=== PATIENT | male | born 1980 | race African-American/Black ===

== ENCOUNTER 2021-03-29 08:01 | Emergency (ER) | payer MEDICAID ==
[~2021-03-29] VITALS: Ht 190.5 cm; Wt 123.0 kg
[2021-03-29] MEDS ORDERED: IBUPROFEN 600MG TABLET PO ONE (08:15)
[2021-03-29 08:35] LABS: BASOPHILS % 0.8 % (0.0-2.0); EOSINOPHILS % 3.6 % (0.0-5.0); HEMATOCRIT. 35.5 % (42.0-52.0); LYMPHOCYTES % 14.4 % (20.0-50.0); MEAN CORPUSCULAR HEMOGLOBIN 28.7 pg (28.0-32.0); MEAN CORPUSCULAR VOLUME 84.9 fL (80.0-94.0); MEAN PLATELET VOLUME 7.9 fl (7.4-10.4); MONOCYTES % 8.8 % (2.0-8.0); NEUTROPHILS % 72.4 % (40.0-76.0); PLATELET 310 x1000/uL (130-400); RED BLOOD CELL COUNT 4.19 mill/uL (4.7-6.1); RED CELL DISTRIBUTION WIDTH 13.8 % (11.6-14.6)
[2021-03-29 08:39] LABS: CHLORIDE 103 mEq/L (98-107)
[2021-03-29] MEDS ORDERED: FURO-152 MT (10:40)
[2021-03-29] MEDS ORDERED: IBUP-2029 MT (10:40)
[2021-03-29 10:45] VITALS: BP 165/69
== END 2021-03-29 10:50 | disposition home or self-care (01) ==
LOC: ER 08:10
DX: R60.9 Edema, unspecified (principal); I11.0 Hypertensive heart disease with heart failure; I50.9 Heart failure, unspecified; Z88.0 Allergy status to penicillin; Z98.890 Other specified postprocedural states
CPT/HCPCS: 36415; 73590; 80053; 83880; 85025; 93971; 99285